=== PATIENT | female | born 1960 | race Caucasian/White ===

== ENCOUNTER 2025-02-13 11:00 | Outpatient (AMB) | payer BC, SELFPAY ==
[2025-02-13 11:48] VITALS: BP 128/78; PULSE 82; RESP 16; O2SAT 95; BMI 31.1
--- NOTE | 2025-02-13 11:48 | MHC.OFFVIS ---
Vital Signs 02/13/25 11:48 Height 5 ft 6 in Weight 193 lb BMI 31.1 BP 128/78 Blood Pressure Location Rt brachial Position Sitting Respiration 16 Pulse 82 Pulse Oximetry (%) 95 Oxygen Delivery Method Room Air Intake Visit Reasons: Headache/CVA Allergies gabapentin Allergy (Unknown, Verified 02/13/25 11:46) Unknown topiramate (From Topamax) Allergy (Unknown, Verified 02/13/25 11:46) Unknown Medication List - Last Reconciled 02/13/25 by Sherie Gimenez CNP atorvastatin 40 mg PO DAILY carvedilol 12.5 mg PO BID metformin 1,000 mg PO BID omeprazole 40 mg PO BID semaglutide (Ozempic) 2 mg subcut QWEEK sertraline 50 mg PO DAILY ubrogepant (Ubrelvy) 100 mg PO DAILY PRN 30 days HPI Comments Details: Yaneli is a 64-year-old female patient with a past medical history of anxiety, type 2 diabetes, angina, arthritis, Mtz's esophagus, CAD, cholelithiasis, forgetfulness, GERD, hyperlipidemia, and CVA who is here today to establish care for her headaches. I did previously see this patient at [facility] in November of 2022 and she subsequently saw Dr. Perez after her left occipital CVA. She is here to reestablish care with Neurology for headache management. She tells me that currently she feels that her headaches are not bad . She feels that they wax and wane and can often be worse in the summer months. She is currently experiencing a headaches a couple times per month. She will experience pain to the frontal area at a level of 3/10 perhaps a couple times a week. These headaches can last up to an hour and are generally resolve with rest. Headaches in the summer months however were occurring near daily. She tells me that this has happened for the past couple of years where her headaches really tend to ramp up in the spring and stay frequent throughout the summer. She had a diagnosis of mild sleep apnea and subsequently had an in-lab sleep study that was non-diagnostic. She is not currently using a cpap device. Sleeps is relatively good aside from some awakenings to urinate during the night. She is generally well rested. She reports that her hydration is probably not adequate . She drinks a couple cups of coffee per day but aside from that does not have any other caffeinated beverages. As a result of her prior CVA, she continues to have some difficulty with word finding and feels that overall she has experienced some cognitive slowing. She does have some vision changes especially to the left eye however she follows with Ophthalmology every 6 months and this was determined to be a result of ?aging? of the eyes and not neurological. Prior medication trials: Topiramate: Suicidal ideations Gabapentin: Suidical ideation Carvedaolol: Taking for cardiac reasons with no benefit in headaches Sertraline: Taking for moods Prior workup: September 2023 MRI of the brain: Small (less than 1 cm) subacute infarct in the left occipital lobe. September 2023 CT head and neck with no intracranial LVO or intracranial/extracranial high-degree stenosis. [facility] Medical History (Updated 02/13/25 @ 14:19 by Sherie Gimenez CNP) Diabetes mellitus HLD (hyperlipidemia) Hiatal hernia GERD (gastroesophageal reflux disease) CAD (coronary artery disease) Barretts esophagus Arthritis Anxiety CVA (cerebral vascular accident) Tension headache Review of Systems Const All systems reviewed & are unremarkable except as noted in HPI and below Physical Exam Vital Signs: Last Vital Signs Pulse 82 02/13/25 11:48 Resp 16 02/13/25 11:48 BP 128/78 02/13/25 11:48 Pulse Ox 95 02/13/25 11:48 Oxygen Delivery Method Room Air 02/13/25 11:48 BMI result Body Mass Index 31.1 Const General: cooperative, healthy appearing, comfortable and no acute distress Nutritional Appearance: well nourished Orientation/consciousness: patient oriented x3 Limitations: no limitations HEENT Head: Yes normal to inspection and Yes normocephalic Eyes General: appearance normal, both eyes and all related structures Alignment and Position: alignment normal Periorbital: periorbital findings normal Eyelids: Yes eyelids normal Conjunctivae: conjunctivae normal Sclerae: sclerae normal Neck Neck: Yes normal visual inspection and Yes full ROM General: Yes no CVA tenderness Back/Spine/Pelvis Back: no CVA tenderness Cervical Spine: normal cervical lordosis Thoracic/Lumbar Spine: thoracic and lumbar spine normal to inspection Neuro General: patient oriented x3 and deep tendon reflexes 2+ bilaterally Cranial nerves: Yes Facial sensation intact/muscles of mastication intact, No Bilaterally intact EOM present (Right visual field deficit visual field deficit) and Yes Nystagmus not present Cognition (Neuro): abnormal cognition (Slightly forgetful with some word-finding difficulties but otherwise WNL) Gait exam (Neuro): Normal gait present Motor exam (neuro): 5/5 motor strength present throughout and no tremor noted Sensory Exam: double simultaneous stimulation for sensation normal Romberg Test: Negative Pupils: Normal pupillary reactivity/response: bilateral Psych Appearance: grossly normal Mental Status: mental status grossly normal Speech and movement: Normal speech and movement present and Clear speech present Affect: normal affect Attitude: cooperative Thought process: Normal thought process present Thought content: Normal thought content present Insight: Good insight present (Psych) Judgement: Good judgement present (Psych) Assessment & Plan Assessment & Plan (1) Migraine without aura and without status migrainosus, not intractable: Code(s): G43.009 - Migraine without aura, not intractable, without status migrainosus Category: Medical (2) History of CVA (cerebrovascular accident): Code(s): Z86.73 - Personal history of transient ischemic attack (TIA), and cerebral infarction without residual deficits Category: Medical Plan Yaneli is a 64-year-old female patient with a past medical history of anxiety, type 2 diabetes, angina, arthritis, Mtz's esophagus, CAD, cholelithiasis, forgetfulness, GERD, hyperlipidemia, and small left occipital CVA who is here today to establish care for her headaches. Headaches are currently mild and non bothersome though she does typically have worsening of headaches in the spring and summer once. For now, she would like to hold off on any new medications those open to having an as-needed therapy on hand should her headaches increase. Because she is not a good candidate for sumatriptan with history of CVA, I will send for a trial of Ubrelvy 100 mg as needed for acute headache. In terms of stroke history, she is on atorvastatin 40mg daily and [id number] daily. Blood pressure is controlled on current blood pressure regimen. She has modified her diet to help reduce her blood sugars and overall she feels that she does relatively well with this. Her exam is relatively normal aside from some obvious word-finding difficulties and some changes to her memory. She also has a notable right visual field deficit to confrontation on exam. Aside from this, she has no other concerns. I do not see that she is still on aspirin and I will send rx to ensure that she is being covered with asa. She is not on any other anticoagulation therapy at this time. -start a trial of Ubrelvy 100 mg as needed for headaches -continue with stroke recommendations as noted above -follow up in September of next year when typical headaches start to ramp up. Could consider preventive therapies at that time -follow up sooner if needed Medications: New ubrogepant (Ubrelvy) 100 mg PO DAILY PRN 8 tabs 5RF migraine headache 30 days Coding Level of Care Code Est Pt Level 4 (67881) Diagnoses Migraine without aura and without status migrainosus, not intractable G43.009 History of CVA (cerebrovascular accident) Z86.73
== END 2025-02-13 14:19 | disposition home or self-care (01) ==
LOC: HO.HSM 11:00
PROVIDERS: PCP Nurse Practitioner Family; Visit Provider Nurse Practitioner
DX: G43.009 Migraine without aura, not intractable, without status migrainosus (principal); Z86.73 Personal history of transient ischemic attack (TIA), and cerebral infarction without residual deficits
CPT/HCPCS: 99214